=== PATIENT | male | born 1985 | race Two or more races ===

== ENCOUNTER 2024-10-01 19:34 | Inpatient (IN) | payer OTHER ==
[~2024-10-01] VITALS: Ht 188 cm; Wt 96.4 kg
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
[2024-10-01 21:00] VITALS: PULSE 63; RESP 19; O2SAT 100
--- NOTE | 2024-10-01 21:03 | DVH ---
CLINICAL INDICATION: Trauma TECHNIQUE: XY L FEMUR XRAY Comparison: None FINDINGS/IMPRESSION: Displaced acute traumatic fracture of the mid femoral shaft. Soft tissue swelling throughout the femur
[2024-10-01] MEDS: HYDROmorphone HCL 2 MG/ML VL/or syr IM ONE (21:16)
[2024-10-01 21:47] LABS: Basophils # (auto) 0 10 ^3/uL (0-0.2); Basophils % (auto) 0.1 % (0.0-2.0); Eosinophils # (auto) 0 10 ^3/uL (0-0.8); Eosinophils % (auto) 0.1 % (0.0-7.0); Hemoglobin 13.5 g/dL (13.5-17.5); Lymphocytes # (auto) 1.3 10 ^3/uL (0.4-5.4); Lymphocytes % (auto) 6.3 % (10.0-50.0); Mean Corpuscular Hemoglobin 28.5 pg (28.0-32.0); Mean Corpuscular Hgb Conc. 32.9 g/dL (32.0-36.0); Mean Corpuscular Volume 86.6 fL (80.0-100.0); Monocytes # (auto) 1.2 10 ^3/uL (0-1.3); Monocytes % (auto) 5.5 % (0.0-12.0); Neutrophils # (auto) 18.7 10 ^3/uL (1.6-8.6); Platelet Count (auto) 203 10^3/uL (140-450); Red Blood Cells 4.74 10^6/uL (4.5-5.90); Red Cell Distribution Width 13.3 % (11.8-14.3); White Blood Cell 21.2 10^3/uL (4.4-10.8)
[2024-10-01 21:57] LABS: Anion Gap 5 (5-15); Carbon Dioxide 21 mmol/L (20-31); Potassium 3.9 mmol/L (3.5-5.1); Sodium 140 mmol/L (136-145)
[2024-10-01 22:03] LABS: BUN/Creatinine Ratio 13.8 (10.0-20.0); Blood Urea Nitrogen 13 mg/dL (9-23); Glucose 103 mg/dL (74-106)
[2024-10-01 22:04] LABS: Blood Alcohol < 3.0 mg/dL (<10); Chloride 114 mmol/L (98-107)
[2024-10-02] MEDS ORDERED: ACETAMINOPHEN 325 MG TAB PO PRN (02:15)
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
[2024-10-02] MEDS: MORPHINE SULFATE INJ 2 MG/ml SYRG IV PRN (02:23)
[2024-10-02 06:48] LABS: Urine Bacteria None Seen /hpf (None Seen)
[2024-10-02 07:10] LABS: Cannabinoid Screen, Urine Pos (NEGATIVE); Opiate Scree,Urine Neg (NEGATIVE)
[2024-10-02 07:15] LABS: Urine Blood Negative /uL (Negative); Urine Clarity Clear (Clear); Urine Color Light-Yellow (Yellow); Urine Mucus FEW (None Seen); Urine Protein, UAD Negative (Negative); Urine Specific Gravity 1.027 (1.001-1.035); Urine Squamous Epithelial Cell None Seen /hpf (<5); Urine Urobilinogen Normal (Negative); Urine WBC 2 /HPF (0-3); Urine pH 5.5 (5.0-9.0)
[2024-10-02 07:23] LABS: Amphetamine Screen, Urine Pos (NEGATIVE); Barbiturate Scree,Urine Neg (NEGATIVE); Benzodiazephine Screen, Urine Neg (NEGATIVE); Cocaine Screen, Urine Pos (NEGATIVE); Phencyclidine Screen, Urine Neg (NEGATIVE)
[2024-10-02 07:30] VITALS: PULSE 71; RESP 17; O2SAT 98
[2024-10-02] MEDS: ENOXAPARIN SOD 40 MG/0.4 ML SYRINGE SC SCH (10:00)
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
--- NOTE | 2024-10-02 12:23 | DVH ---
US LT LOWER DVT US 10/02/2024 10:23 AM Clinical History: TO R/O BLOOD CLOTS Comparison: None Technique: Duplex Doppler evaluation of the deep venous system of the left lower extremity from the common femor al vein to the popliteal vein including color Doppler and spectral/pulsed waveform analysis was perfo rmed. Findings: The common femoral vein demonstrates appropriate compressibility and waveform variability. There is compressibility/patency of the great saphenous vein at the proximal thigh. The femoral vein demonstrates appropriate compressibility and waveform variability. The deep femoral vein demonstrates appropriate compressibility and waveform variability. The popliteal vein demonstrates appropriate compressibility and waveform variability. There is color flow in the tibioperoneal trunk and posterior tibial vein. Impression: 1. No deep venous thrombosis left lower extremity. If clinical concern/symptoms persist or worsen, s hort-interval follow-up study is suggested.
[2024-10-02 12:39] VITALS: BP 152/83; PULSE 57; RESP 18; TEMP 97.3; O2SAT 97
[2024-10-02 13:00] VITALS: BP 152/83; PULSE 53; RESP 18; TEMP 97.3; O2SAT 96
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
[2024-10-02] MEDS ORDERED: MIDAZOLAM HCL 2MG/2ML 2ml VIAL (1mg/ml) ONE (14:12)
[2024-10-02] MEDS ORDERED: fentaNYL CITRATE 100 MCG/2 ML VL ONE (14:12)
[2024-10-02] MEDS ORDERED: LIDOCAINE HCL 100 MG/5ML (2%) SYRG INJ IV ONE (14:20)
[2024-10-02] MEDS ORDERED: HYDROmorphone HCL 2 MG/ML VL/or syr ONE (15:14)
[2024-10-02] MEDS: BUPIVACAINE HCL 50 ML ONE (15:29)
[2024-10-02] MEDS: ALBUMIN 5% 250 ML IV ONE (15:42)
[2024-10-02] MEDS ORDERED: SUGAMMADEX 200mg/2ml Vial (100MG/ML) IV ONE (16:23)
[2024-10-02 18:02] LABS: Basophils # (auto) 0 10 ^3/uL (0-0.2); Basophils % (auto) 0.2 % (0.0-2.0); Eosinophils # (auto) 0.1 10 ^3/uL (0-0.8); Eosinophils % (auto) 0.4 % (0.0-7.0); Hematocrit 37.7 % (41.0-53.0); Hemoglobin 12.5 g/dL (13.5-17.5); Lymphocytes # (auto) 0.8 10 ^3/uL (0.4-5.4); Lymphocytes % (auto) 6.5 % (10.0-50.0); Mean Corpuscular Hemoglobin 28.2 pg (28.0-32.0); Mean Corpuscular Hgb Conc. 33.1 g/dL (32.0-36.0); Mean Corpuscular Volume 85.2 fL (80.0-100.0); Monocytes # (auto) 0.6 10 ^3/uL (0-1.3); Monocytes % (auto) 4.4 % (0.0-12.0); Neutrophils # (auto) 11.6 10 ^3/uL (1.6-8.6); Neutrophils % (auto) 88.5 % (37.0-80.0); Platelet Count (auto) 205 10^3/uL (140-450); Red Blood Cells 4.43 10^6/uL (4.5-5.90); Red Cell Distribution Width 13.2 % (11.8-14.3)
--- NOTE | 2024-10-02 18:07 | DVH ---
C-ARM FLUOROSCOPY: PROCEDURE: Left intramedulary nahum FLUOROSCOPY TIME: 2 min 12 sec DAP: 12.17 mgy FINDINGS: Spot intraoperative C arm radiographs demonstrating left intramedullar nahum . IMPRESSION: Please refer to surgical report for detailed findings.
[2024-10-02] MEDS: LACTATED RINGER'S 1,000 ML IV SCH (18:19)
[2024-10-02 20:00] VITALS: PULSE 62; RESP 18; O2SAT 97
[2024-10-02 21:00] VITALS: BP 141/88; PULSE 62; RESP 18; TEMP 97.8; O2SAT 97
[2024-10-03 00:54] VITALS: BP 130/58; PULSE 64; RESP 19; TEMP 97.9; O2SAT 95
[2024-10-03 05:00] VITALS: BP_SYST 129; BP_SYST 148; BP_DIAS 68; BP_DIAS 99; PULSE 110; PULSE 66; RESP 18; RESP 19; TEMP 98; TEMP 98.2; O2SAT 94; O2SAT 96
[2024-10-03 05:34] LABS: Hematocrit 34.7 % (41.0-53.0); Hemoglobin 12.1 g/dL (13.5-17.5)
[2024-10-03 05:42] LABS: Chloride 101 mmol/L (98-107); Potassium 3.9 mmol/L (3.5-5.1); Sodium 136 mmol/L (136-145)
[2024-10-03 05:43] LABS: Anion Gap 10 (5-15); Calcium 9.2 mg/dL (8.7-10.4); Carbon Dioxide 25 mmol/L (20-31)
[2024-10-03 05:48] LABS: BUN/Creatinine Ratio 12.2 (10.0-20.0); Blood Urea Nitrogen 10 mg/dL (9-23)
[2024-10-03 05:50] LABS: Glucose 135 mg/dL (74-106)
[2024-10-03 09:00] VITALS: BP 135/79; PULSE 84; RESP 17; TEMP 98.9; O2SAT 98
[2024-10-03] MEDS ORDERED: NICOTINE 7MG/24HR TOPICAL PATCH TD PRN (09:45)
--- NOTE | 2024-10-03 12:44 | DVHPN2 ---
Progress Note - Dictate Date Seen: Oct 03, 2024 Medical Necessity Reason Pt with a Central, PICC or Fol: No Subjective Patient was lying comfortably in bed during my evaluation reports some postoperative knee and thigh pain that is being somewhat improved with the help of pain medication. Patient reports that he was able to get up and walk with the help of physical therapy and his walker and was able to get down the hemphill and back to his room with some discomfort. Patient reports that he has been remaining 50% weight-bearing on his operative side since the surgery. Patient is otherwise feeling well denying any other complaints or concerns during my evaluation. vital signs Vital Sign Date Time Temp Pulse Resp B/P (MAP) Pulse Ox O2 Delivery O2 Flow Rate FiO2 10/03/24 11:51 64 18 131/69 10/03/24 09:00 98.9 98 98.9 10/02/24 20:00 Room Air* 0 21 Total Intake and Output 10/02/24 10/02/24 10/03/24 15:00 23:00 07:00 Intake Total 250 ml 2200 ml Output Total 0 ml 900 ml Balance 250 ml 1300 ml medications Current Medications Medications Dose Ordered Sig/Jesus Route Start Time Stop Time Status Last Admin Dose Admin Acetaminophen 650 mg Q6HP PRN PO 10/02/24 02:15 Morphine Sulfate 2 mg Q4HPRN PRN IV 10/02/24 02:15 10/03/24 11:51 2 MG Enoxaparin Sodium 40 mg DAILY SC 10/02/24 10:00 10/03/24 10:31 40 MG Lactated Ringer's 1,000 ml @ 100 mls/hr Q10H IV 10/02/24 16:45 10/03/24 04:28 100 MLS/HR Nicotine 1 patch DAILY PRN TD 10/03/24 09:45 objective A&O x4 in no acute distress Knee range of motion grossly limited with pain on movement Dressing clean, dry, and intact No distal edema or calf tenderness to palpation Neurovascularly intact with cap refill less than 2 seconds laboratory and microbiology Laboratory Tests 10/03/24 05:09 10/02/24 17:00 Test 10/03/24 05:09 Range/Units Serum Glucose 135 H 74-106 mg/dL Assessment/Plan Left displaced mid femoral shaft fracture I had a lengthy discussion with the patient and advised to continue with conservative treatment and to remain 50% weight-bearing on his operative leg with the assistance of a walker. I also advised the patient to maintain his dressings clean, dry, and intact and to follow up with our office in 10-14 days for his 1st postoperative evaluation. I also advised the patient to call our office if he has any questions or concerns. He understood and agreed. Plan discussed with: Patient BRANDY POLO Oct 03, 2024 12:44
[2024-10-03] MEDS ORDERED: HYDROcodone-ACET 5/325MG TAB PO PRN (12:45)
[2024-10-03 13:11] VITALS: BP 133/82; PULSE 86; RESP 17; TEMP 98.7; O2SAT 98
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
[2024-10-03] MEDS: HYDROcodone-ACET 10/325MG TAB PO PRN (14:58)
[2024-10-03] MEDS ORDERED: NAPR-746 PO (16:53)
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
[2024-10-03 16:55] VITALS: BP 143/84; PULSE 101; RESP 17; TEMP 98.6; O2SAT 99
[2024-10-03 17:53] VITALS: BP 133/90; PULSE 93; RESP 18; TEMP 98.6; O2SAT 100
== END 2024-10-03 16:38 | disposition home or self-care (01) | DRG 482 ==
LOC: ER 19:34 → OVERFLOW 10-02 02:04 → EAST 10-02 12:58
PROVIDERS: ADMIT Internal Medicine; ATTEND Internal Medicine
PROC: 0QS936Z Reposition Left Femoral Shaft with Intramedullary Internal Fixation Device, Percutaneous Approach (ICD-10-PCS; principal; 2024-10-02 14:35)
DX: S72.342A Displaced spiral fracture of shaft of left femur, initial encounter for closed fracture (principal); D72.829 Elevated white blood cell count, unspecified; E87.8 Other disorders of electrolyte and fluid balance, not elsewhere classified; Z83.3 Family history of diabetes mellitus; Z79.899 Other long term (current) drug therapy; V18.4XXA Pedal cycle driver injured in noncollision transport accident in traffic accident, initial encounter; Y93.55 Activity, bike riding; Y92.89 Other specified places as the place of occurrence of the external cause; Y99.8 Other external cause status
CPT/HCPCS: 36415; 76000; 80048; 80307; 80320; 81001; 82962; 83036; 85014; 85018; 85025; 86850; 86900; 86901; 93971; 96372; 97163; C1713; C1769; G0378; J2250; J3490